=== PATIENT | female | born 1985 ===

== ENCOUNTER → 2023-07-11 15:22 | Outpatient (CLI) | payer OTHER, SELFPAY ==
--- NOTE | ~2023-07-11 | US_ITS ---
EXAMINATION: US OB limited DATE: 07/11/2023 15:52 INDICATION: Size less than dates. Third trimester. TECHNIQUE: Real-time ultrasound of the pelvis was performed. COMPARISON: None. FINDINGS: There is a single fetus in vertex presentation. The placenta is fundal and anterior. heart rat e is 155 beats per minute (bpm). The amniotic fluid index is 10.1 m cm, which is normal. IMPRESSION: 1. Single living fetus in vertex presentation. Reviewed, dictated and finalized at location A. LING ASSISTANT
== END ==
PROVIDERS: PCP Advanced Practice Midwife; Visit Provider Advanced Practice Midwife
DX: O36.5930 Maternal care for other known or suspected poor fetal growth, third trimester, not applicable or unspecified (principal)
CPT/HCPCS: 76815

== ENCOUNTER 2023-07-25 05:01 | Inpatient (IN) | payer OTHER, SELFPAY ==
[2023-07-25] VITALS (20 sets, daily range): BP systolic 88–150; BP diastolic 32–96; PULSE 64–110; RESP 18–20; TEMP 36.2–37; O2SAT 97–99
[2023-07-25 05:48] LABS: Basophils Percent Auto 0.2 % (0.2-1.2); Eosinophils Absolute Auto 0.1 K/mm3 (0-0.3); Eosinophils Percent Auto 1.6 % (0-4.4); Hematocrit 35.5 % (37.0-47.0); Hemoglobin 12.2 g/dL (12.0-15.0); Immature Granulocyte Absolute 0.02 K/mm3 (0.00-0.031); Immature Granulocyte Percent A 0.4 % (0-0.5); Lymphocytes Absolute Auto 1.42 K/mm3 (0.9-3.2); Lymphocytes Percent Auto 25.2 % (18.3-44.2); Mean Corpuscular HGB Conc 34.4 g/dl (32-36); Mean Corpuscular Volume 98.9 fl (80-100); Mean Platelet Volume 10.3 fl (7.4-10.4); Monocytes Absolute Auto 0.6 K/mm3 (0.1-0.6); Monocytes Percent Auto 10.3 % (2.6-8.5); Neutrophils Absolute Auto 3.5 K/mm3 (1.3-6.7); Neutrophils Percent Auto 62.3 % (45.5-73.1); Platelet Count Result 138 k/mm3 (150-375); Red Blood Count 3.59 M/mm3 (4.2-5.4); Red Cell Distribution Width 13.2 % (11.5-14.5); White Blood Count 5.6 K/mm3 (4.5-10.0)
--- NOTE | 2023-07-25 05:51 | ADMGEN ---
This patient, Mey Roman, was admitted to Labor/Delivery/Recovery 104-00. Patient/family oriented to hospital policies and general routines including ID bracelet, bed and alarms, visiting hours, pain management, procedures, bathroom and other care routines, personal items, smoking policy, room service/diet, and visiting hours. Information on how to activate the Rapid Response Team has been discussed. Patient/Family are encouraged to report perceived risks to care and to ask questions if they do not understand what they are told or what they should do.
[2023-07-25] MEDS: LACTATED RINGERS 1,000 ML 125 ML IV CONT (06:40)
[2023-07-25] MEDS: OXYTOCIN 30 UNITS/NS 500 ML 30 UNITS/500 ML BAG IV CONT (06:40)
--- NOTE | 2023-07-25 07:32 | WPDOBADMIT ---
Obstetrics - Admit Note Admission Note: record reviewed. No pertinent additions to the history and/or any subsequent changes in the physical findings that are not consistent with the expected course of the were found. Additions to the history and/or subsequent changes in the physical findings follow. Here for MIL at 39 wks. Cervix /-2 anterior. AROM with clear fluid. Pitocin infusing. FHTs reactive.
[2023-07-25] MEDS: LIDOCAINE HCL 1% LOCAL INJ 20 ML VIAL (10:31)
--- NOTE | 2023-07-25 10:43 | PM.OBPRVD ---
OB - Vaginal Delivery Note Procedure Delivery date: 07/25/23 Events: Other (39 wk MIL) Induction method: AROM and Per Pitocin Protocol Delivery monitor: External FHT and External Uterine Route of delivery: Episiotomy description: None Laceration Description: Perineal - 2nd Degree Delivery repair: vicryl (3-0) Specimen: No Quantitative Blood Loss (ml): 150 Anesthesia type: Local Disposition: Floor Complications: No immediate complications Baby Date of : 07/25/23 Weeks of gestation at delivery: 39 gender: Female presentation: vertex position: Right Occiput Anterior Placenta delivery description: Spontaneous Cord Vessel Description: 3 Vessels and Delayed Cord Clamping score one minute: 8 score five minutes: 9
--- NOTE | 2023-07-25 10:44 | PM.OBDSVD ---
DS: Admitting Diagnosis Discharge Date 07/26/23 Admitting Diagnosis IUP 39 wks for BRIDGETTE DS: Discharge Diagnosis Discharge Diagnosis (1) (normal spontaneous vaginal delivery): Code(s): O80 - Encounter for full-term uncomplicated delivery Status: Acute OB - DS: Summary OB Procedures : Ultrasound OB Procedures Intrapartum: Spontaneous Vag Delivery OB Procedures: : None Peripartum Data Delivery Method: Natural Vaginal Laceration Description: Perineal - 2nd Degree Episiotomy description: None complications: none Status at Discharge Functional status at discharge: independent ambulation Overall status at discharge: patient is progressing back to baseline Time Spent with Patient Time attestation: Total time spent providing and/or coordinating discharge services: DS: Data Data Completed and Pending Labs on day of discharge: Labs from last 24 hours 07/25/23 05:43 WBC 5.6 RBC 3.59 L Hgb 12.2 Hct 35.5 L MCV 98.9 MCH 34.0 MCHC 34.4 RDW 13.2 Plt Count 138 L MPV 10.3 Immature Gran % (Auto) 0.4 Neut % (Auto) 62.3 Lymph % (Auto) 25.2 [place] % (Auto) 10.3 H Eos % (Auto) 1.6 Baso % (Auto) 0.2 Lymph # (Auto) 1.42 [place] # (Auto) 0.6 Eos # (Auto) 0.1 Baso # (Auto) 0.0 Abs Immat Gran (auto) 0.02 Absolute Neuts (auto) 3.5 Absolute Nucleated RBC 0.0 Nucleated RBC % 0.0 RPR Pending Blood Type AB Positive Antibody Screen Negative Discharge Plan Discharge Attending physician on discharge: Prachi Kumar Discharging Clinician: Prachi Kumar Anticipated Discharge Date/Time: 07/27/23 10:45 Patient Disposition: Home, Self-Care Activity: may shower Diet: regular Patient Instructions: Antibiotic Form Stand Alone Forms: General Discharge Information Follow-up/Referrals: Prachi Kumar MD [Physician] - 6 Weeks Discharge Medications: Continued Classic 1 tab-cap PO DAILY cholecalciferol (vitamin D3) [Vitamin D3] 25 mcg (1,000 unit) Tablet 25 mcg PO WEEKLY Discontinued folic acid 400 mcg Tablet 0.4 mg PO DAILY aspirin 81 mg Tablet 81 mg PO DAILY loratadine 10 mg Tablet 10 mg PO DAILY Date of admission: 07/25/23 05:01 Primary Care Provider: Meliton,Kenneth Admitting Provider: Prachi Kumar Attending physician on admission: Prachi Kumar Condition: Stable
[2023-07-25] MEDS: OXYTOCIN 30 UNITS/NS 500 ML 30 UNITS/500 ML BAG 125 UNITS IV CONT (11:03)
[2023-07-25] MEDS: IBUPROFEN 600 MG TABLET PO ×2 (12:14→20:00)
--- NOTE | 2023-07-25 14:45 | PC.NURSE ---
Patient transferred to post room #283 via wheelchair. Support person present. Oriented to unit, room, information board, rooming in, admission packet and security measures. Patient verbalizes understanding.
--- NOTE | 2023-07-25 14:46 | PC.NURSE ---
[id number] Introductions were made, then consulted with patient to assess needs related to . Mother led the conversation with her?plans to feed?her infant, the?experience so far (small bruise on the right breast areola) and history with her first child. Encouraged understanding of the benefits of skin to skin (demonstrating unwrapping and placing upright on her chest), stimulating with massage touch, changing positions to encourage wakefulness, how to watch for early feeding cues, responsive feeding, feeding on demand (aiming for 8-12 times in 24 hours, about every 2-3 hours), milk production, building/maintaining a milk supply, duration of feeding, signs of adequate intake/output and how to record on the feeding sheet. Mother works well with her infant. Reviewed positioning and ear, shoulder, hip alignment, supporting the breast to facilitate a deep latch, asymmetrical latch (off-center), leading with the chin with a big, open, wide gape and body close to mother. Infant latched optimally to the right breast in cross cradle position. Education given to the mother of how to visualize the suckling (with good rocking jaw motion), swallows (dropping of the lower jaw) and how to listen for drinking at the breast (the ka sound). was able to maintain latch without pain to mother protecting the nipple with optimal positioning and latching. Reviewed comfort measures of good handwashing when or touching the breast/nipples to prevent infection. Mother voiced understanding of skin to skin, stimulating with massage touch, responsive feedings, hand expressed colostrum, talking to infant to encourage if it has been 2 -2.5 hours since the start of the last , to call if does not latch, or if there is discomfort with . Resources used for education were facilitated with the tool, Inpatient resources provided with name written on the communication board. Mother voiced understanding of information, demonstrated learning and will call if there is a request for assistance. Reported to the Primary RN.
[2023-07-26 01:22] VITALS: BP 97/58; PULSE 80; RESP 16; TEMP 36.4; O2SAT 98
[2023-07-26 04:30] VITALS: BP 110/59
[2023-07-26 05:12] LABS: Hematocrit 34.2 % (37.0-47.0)
[2023-07-26] MEDS: IBUPROFEN 600 MG TABLET PO (08:04)
[2023-07-26] MEDS: DOCUSATE SODIUM 100 MG CAPSULE PO (08:04)
[2023-07-26] MEDS: LANOLIN (LANSINOH) 7.5 GM CREAM 1 APPLIC TOPICAL (08:05)
[2023-07-26 08:53] VITALS: BP 115/81; PULSE 90; RESP 20; TEMP 36.1; O2SAT 100
--- NOTE | 2023-07-26 09:00 | PM.OBPNVD ---
OB - PN: Subj Subjective Date/time seen: 07/26/23 09:00 Patient comments: no complaints and pain well controlled baby status: doing well OB - PN: Obj Data Labs 07/26/23 04:50 Labs: Laboratory Results - last 24 hr 07/26/23 04:50 Hgb 11.0 L Hct 34.2 L OB - PN A/P Plan day: 1 Plan: routine care, discharge home, follow up 6 weeks and other (uncertain plans for BC) Time Spent With Patient Time: Total time spent is greater than 50% in coordination of care (as documented) at patient's floor/unit and/or counseling patient: Exam : Bimanual exam- vagina & uterus: other (Uterus firm, nt @U)
[2023-07-26] MEDS: MEASLES,MUMPS,RUBELLA VACCINE 0.5 ML VIAL SUB-Q (10:26)
[2023-07-26 10:49] LABS: Rapid Plasma Reagin Non-Reactive (NonReactive)
--- NOTE | 2023-07-26 11:41 | PC.NURSE ---
Patient viewed the discharge video Mother & Baby Care, The First Two Weeks . Patient was given the opportunity and encouraged to ask questions. Patient verbalized understanding of information shared and has been given the mother/baby guide for home reference.
[2023-07-28 11:49] VITALS: BP 103/68; PULSE 82; RESP 18; TEMP 37.3; O2SAT 100
== END 2023-07-26 13:40 | disposition home or self-care (01) | DRG 807 ==
LOC: ANHLDR 10:45 → ANHOB2 14:02
PROVIDERS: Admitting Provider Obstetrics & Gynecology Gynecology; PCP Student in an Organized Health Care Education/Training Program; Visit Provider Obstetrics & Gynecology Gynecology
DX: O70.1 Second degree perineal laceration during delivery (principal); Z37.0 Single live birth; Z3A.40 40 weeks gestation of pregnancy
CPT/HCPCS: 36415; 85014; 85018; 85025; 86592; 86850; 86900; 86901; 90710; A9270; J2590; J2795; J7120

== ENCOUNTER 2024-12-13 15:23 | Outpatient (CLI) | payer OTHER, SELFPAY ==
--- NOTE | ~2024-12-13 | MM_ITS ---
EXAMINATION: MM screening giuseppe BI w mack HISTORY: Screening TECHNIQUE: Craniocaudal and mediolateral oblique 3-D tomosynthesis images were obtained and synthetic 2-D images were generated. CAD analysis was submitted and interpreted. COMPARISON: No prior mammogram is available for comparison at this institution. BREAST PARENCHYMAL COMPOSITION: Dense: The breasts are extremely dense, which lowers the sensitivity of mammography. FINDINGS: There is no evidence of suspicious mass, calcification, or architectural distortion to sugg est malignancy in either breast. There has been no suspicious interval change. IMPRESSION: 1. No mammographic evidence of malignancy. 2. Recommend routine screening mammography in one year. BI-RADS Category 1: Negative Reviewed, dictated and finalized at location B.
== END 2024-12-13 15:24 | disposition home or self-care (01) ==
PROVIDERS: PCP Advanced Practice Midwife; Visit Provider Obstetrics & Gynecology Gynecology
DX: Z12.31 Encounter for screening mammogram for malignant neoplasm of breast (principal)
CPT/HCPCS: 77063; 77067